=== PATIENT | male | born 1945 | race Caucasian/White ===

== ENCOUNTER → 2020-04-20 08:04 | Outpatient (BNVA) | payer MEDICARE, SELFPAY | PROVIDERS: Family Provider Nurse Practitioner; PCP Nurse Practitioner; Visit Provider Nurse Practitioner | DX: E78.2 Mixed hyperlipidemia (principal) | CPT/HCPCS: 80053; 80061 ==

== ENCOUNTER → 2020-10-05 08:07 | Outpatient (BNVA) | payer MEDICARE, SELFPAY | PROVIDERS: Family Provider Nurse Practitioner; PCP Nurse Practitioner; Visit Provider Nurse Practitioner | DX: Z79.899 Other long term (current) drug therapy (principal) | CPT/HCPCS: 84450; 84460 ==

== ENCOUNTER → 2020-10-07 08:04 | Outpatient (BNVA) | payer MEDICARE, SELFPAY | PROVIDERS: Family Provider Nurse Practitioner; PCP Nurse Practitioner; Visit Provider Nurse Practitioner | DX: E78.2 Mixed hyperlipidemia (principal) | CPT/HCPCS: 80053; 80061 ==

== ENCOUNTER 2020-11-20 14:11 | Emergency (ER) | payer MEDICARE, SELFPAY ==
[2020-11-20 14:17] VITALS: BP 115/64; PULSE 51; RESP 18; TEMP 36.7; O2SAT 99; BMI 24.3
--- NOTE | 2020-11-20 14:24 | W.ED.EYEPROB ---
Documented by User: JANE Casarez 11/20/20 15:12 HPI - Eye Problem General: Chief complaint: Eye Problems Stated complaint: L EYE INJURY Time Seen by Provider: 11/20/20 14:12 Source: patient Mode of arrival: ambulatory Limitations: no limitations History of Present Illness: HPI Narrative: Patient is a 75-year-old male who presents to ED today with a complaint of redness to his left eye. He states he only noticed the eye when he looked in the mirror. He denies any recent trauma. He is not complaining of pain. He is not complaining of any visual changes or visual loss. He has a mild foreign body sensation to the lateral aspect of his eye. 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 Mixed hyperlipidemia Tobacco abuse, in remission Vitamin D deficiency Surgical History H/O sinus surgery History of colonoscopy 2012 History of hernia repair History of tonsillectomy History of vasectomy Hx of coronary angioplasty July 30, 2017 Family History Mother Cancer Breast, Throat, Kidney Brother Cancer Lung Father Alzheimer disease Denies family history of Family history of premature coronary artery disease Social History Smoking and tobacco status: former smoker Second hand smoke exposure: No Smoking risk assessment/counseling performed?: No Alcohol intake: never Desire information about alcohol rehabilitation?: No Counseling given: No Desire information about substance/drug rehabilitation?: No Counseling given: No Caregiver/support person: No Lives independently: Yes Household members: spouse Housing: House Marital status: Current occupational status: retired History of recent travel: No Current gender identity: Male Special elian needs: No Physical Exam Const: COMMON NORMALS: no acute distress, average body habitus, patient oriented x3, no limitations, healthy appearing, alert and well nourished GENERAL APPEARANCE: cooperative ORIENTATION/CONSCIOUSNESS: Yes awake, Yes oriented to person, Yes oriented to place and Yes oriented to time HENMT: COMMON NORMALS: normocephalic, atraumatic, hearing grossly normal bilaterally, external ears normal, EAC's normal, TM's normal bilaterally, Normal external nose present, Normal nasal mucous membranes and turbinates present, moist oral mucous membranes and oropharynx normal HEAD & SCALP: normal to inspection, normocephalic and atraumatic FACE & SINUS: normal facial exam, sinuses nontender and other (mild ecchymosis noted to interior orbital region) NOSE: Normal external nose present and Normal nasal mucous membranes and turbinates present EXTERNAL EAR: Yes external ears normal EXTERNAL AUDITORY CANAL: EAC's normal TYMPANIC MEMBRANE: TM's normal bilaterally Eye: COMMON NORMALS: Equal, round and reactive pupils present, EOMs intact bilaterally and normal visual weston by confrontation GENERAL EYE: normal light reflex VISUAL ACUITY: Yes acuity normal VISUAL [place]ST[place]: No peripheral vision loss ALIGNMENT: Yes alignment normal EYELID: eyelids normal CONJUNCTIVA: Yes conjunctival abnormal (L subconjunctival hemorrhage) CORNEA: Yes fluorescein used (very small abrasion to medial aspect ) PUPIL: Yes Equal, round and reactive pupils present and Yes Pupil accommodation reflex normal EOM: No Nystagmus present DIRECT OPHTHALMOSCOPY: Yes normal light reflex Neck/C-Spine: COMMON NORMALS: full ROM, no lymphadenopathy and no meningeal signs Neuro: COMMON NORMALS: patient oriented x3 SENSORIUM/ORIENTATION: Yes alert, Yes oriented to person, Yes oriented to place and Yes oriented to time MENINGEAL SIGNS: Yes no meningeal signs Course Vital Signs: Vital signs: Vital Signs Temperature 98.0 F 11/20/20 14:17 Pulse Rate 51 L 11/20/20 14:17 Respiratory Rate 18 11/20/20 14:17 Blood Pressure 119/66 11/20/20 14:46 Pulse Oximetry 99 11/20/20 14:17 MDM - Eye Problem MDM Narrative: Medical decision making narrative: Dr. Corona has also seen and evaluated patient and agrees with current plan. He has a small medial corneal abrasion with a fairly large subconjunctival hemorrhage. There is no evidence of globe injury. There is no blood or fluid to his anterior chamber. Patient is not complaining of pain or visual changes. He does not wish to follow-up with Dr. Moore. I have contacted [facility] who stated they would gladly see patient. Recommend they contact their office on Monday for appointment date and time. Strict return to ED precautions given regarding visual changes or pain in his eye. Will place patient on antibiotic drops. Discharge Plan Discharge Patient Disposition: Home Clinical Impression: Subconjunctival hemorrhage of left eye Abrasion of left cornea Qualifiers: Encounter type: initial encounter Qualified Code(s): S05.02XA - Injury of conjunctiva and corneal abrasion without foreign body, left eye, initial encounter Condition: Stable Prescriptions: New Polytrim 10,000 unit- 1 mg/mL drops 1 drp ophthalmic (eye) QID 7 Days Qty: 10 RF: 0 No Action aspirin 81 mg tablet,delayed release (DR/EC) 81 mg PO DAILY@0800 RF: 0 Vitamin D3 1 tab PO DAILY@0800 RF: 0 atorvastatin 40 mg tablet 40 mg PO DAILY@0800 RF: 0 famotidine 40 mg tablet 40 mg PO BID@799,1999 RF: 0 clopidogrel 75 mg tablet 75 mg PO DAILY@0800 RF: 0 terbinafine HCl 250 mg tablet 250 mg PO DAILY@0800 RF: 0 temazepam 30 mg capsule 30 mg PO BEDTIME@1999 RF: 0 fluoxetine 20 mg capsule 20 mg PO DAILY@0800 RF: 0 lisinopril 2.5 mg tablet 2.5 mg PO DAILY@00 RF: 0 finasteride 5 mg tablet 5 mg PO BEDTIME@1999 RF: 0 metoprolol tartrate 25 mg tablet 12.5 mg PO BID@799,1999 RF: 0 Discharge Orders: Discharge ED (Routine); Ordered 11/20/20 Ordered By: Codi Zee Referrals: Lloyd Regalado, [facility] [Primary Care Provider] - Patient Instructions: Opioid Safety Activity Restrictions/Additional Instructions: [facility] is committed to fighting the nationwide opiate epidemic. We are providing ALL patients with information regarding opiate safety. If you received opiate pain medication during your stay or if you received a prescription for opiate pain medication-please review this handout. If not, you may disregard. Thank you. As discussed have spoken to [facility] in [facility]. If eye does not seem to be improving by Monday you need to contact their office at [phone] or [phone] to schedule an appointment. As discussed at anytime if you feel like the eye is worsening, you begin having visual changes/visual loss, or pain you need to return immediately to the emergency department. 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 Mixed hyperlipidemia Tobacco abuse, in remission Vitamin D deficiency Surgical History H/O sinus surgery History of colonoscopy 2012 History of hernia repair History of tonsillectomy History of vasectomy Hx of coronary angioplasty July 30, 2017 Family History Mother Cancer Breast, Throat, Kidney Brother Cancer Lung Father Alzheimer disease Denies family history of Family history of premature coronary artery disease Social History Smoking and tobacco status: former smoker Second hand smoke exposure: No Smoking risk assessment/counseling performed?: No Alcohol intake: never Desire information about alcohol rehabilitation?: No Counseling given: No Desire information about substance/drug rehabilitation?: No Counseling given: No Caregiver/support person: No Lives independently: Yes Household members: spouse Housing: House Marital status: Current occupational status: retired History of recent travel: No Current gender identity: Male Special elian needs: No Course Vital Signs: Vital signs: Vital Signs Temperature 98.0 F 11/20/20 14:17 Pulse Rate 51 L 11/20/20 14:17 Respiratory Rate 18 11/20/20 14:17 Blood Pressure 119/66 11/20/20 14:46 Pulse Oximetry 99 11/20/20 14:17 MDM - Eye Problem MDM Narrative: Medical decision making narrative: I evaluated this patient with JANE Casarez. Kindly evaluate her note for a complete history and evaluation. I examined this patient and i agree with her findings. This male with significant subconjunctival hemorrhage without any trauma. Evaluation also shows a small corneal abrasion. He will be evaluated by the eye providers in [place] per patient's preference. He is discharged home with a prescription for antibiotic ointment and will follow up with eye providers as scheduled. Discharge Plan Discharge Patient Disposition: Home Clinical Impression: Subconjunctival hemorrhage of left eye Abrasion of left cornea Qualifiers: Encounter type: initial encounter Qualified Code(s): S05.02XA - Injury of conjunctiva and corneal abrasion without foreign body, left eye, initial encounter Condition: Stable Prescriptions: New Polytrim 10,000 unit- 1 mg/mL drops 1 drp ophthalmic (eye) QID 7 Days Qty: 10 RF: 0 No Action aspirin 81 mg tablet,delayed release (DR/EC) 81 mg PO DAILY@0800 RF: 0 Vitamin D3 1 tab PO DAILY@0800 RF: 0 atorvastatin 40 mg tablet 40 mg PO DAILY@0800 RF: 0 famotidine 40 mg tablet 40 mg PO BID@799,1999 RF: 0 clopidogrel 75 mg tablet 75 mg PO DAILY@0800 RF: 0 terbinafine HCl 250 mg tablet 250 mg PO DAILY@0800 RF: 0 temazepam 30 mg capsule 30 mg PO BEDTIME@1999 RF: 0 fluoxetine 20 mg capsule 20 mg PO DAILY@0800 RF: 0 lisinopril 2.5 mg tablet 2.5 mg PO DAILY@0800 RF: 0 finasteride 5 mg tablet 5 mg PO BEDTIME@1999 RF: 0 metoprolol tartrate 25 mg tablet 12.5 mg PO BID@799,1999 RF: 0 Discharge Orders: Discharge ED (Routine); Ordered 11/20/20 Ordered By: Codi Zee Referrals: Lloyd Regalado, [facility] [Primary Care Provider] - Patient Instructions: Opioid Safety Activity Restrictions/Additional Instructions: [facility]. We are providing ALL patients with information regarding opiate safety. If you received opiate pain medication during your stay or if you received a prescription for opiate pain medication-please review this handout. If not, you may disregard. Thank you. As discussed [facility]. If eye does not seem to be improving by Monday you need to contact their office at [phone] or [phone] to schedule an appointment. As discussed at anytime if you feel like the eye is worsening, you begin having visual changes/visual loss, or pain you need to return immediately to the emergency department. Coding Level of Care Code ED Fork Repairer for Radhag Fwd Exam Expanded Problem Focused
[2020-11-20 14:46] VITALS: BP 119/66
--- NOTE | 2020-11-20 14:48 | PC.NURSE ---
visual acuity uncorrected both eyes 20/25 right 20/25 left 20/50 lees lamp eye exam at bedside with brenden
[2020-11-20] MEDS: tetracaine 0.5% Op Soln 4 mL Btl 1 DROP EYE-LEFT (14:49)
[2020-11-20] MEDS: fluorescein 1 mg Strip EYE-LEFT (14:49)
[2020-11-20] MEDS: eye irrigation 30 mL Btl EYE-LEFT (14:50)
== END 2020-11-20 15:07 | disposition home or self-care (01) ==
PROVIDERS: Emergency Provider Physician Assistant; PCP Nurse Practitioner
DX: H11.32 Conjunctival hemorrhage, left eye (principal); S05.02XA Injury of conjunctiva and corneal abrasion without foreign body, left eye, initial encounter; Z79.82 Long term (current) use of aspirin; Z79.02 Long term (current) use of antithrombotics/antiplatelets; Z87.891 Personal history of nicotine dependence; Z98.61 Coronary angioplasty status; I25.10 Atherosclerotic heart disease of native coronary artery without angina pectoris; J44.9 Chronic obstructive pulmonary disease, unspecified; E78.2 Mixed hyperlipidemia; X58.XXXA Exposure to other specified factors, initial encounter
CPT/HCPCS: 99282

== ENCOUNTER → 2021-03-24 08:04 | Outpatient (BNVA) | payer MEDICARE, SELFPAY | PROVIDERS: PCP Nurse Practitioner; Visit Provider Nurse Practitioner | DX: E78.2 Mixed hyperlipidemia (principal); J43.9 Emphysema, unspecified | CPT/HCPCS: 80053; 80061 ==

== ENCOUNTER → 2021-09-20 08:21 | Outpatient (BNVA) | payer MEDICARE, SELFPAY | PROVIDERS: PCP Family Medicine; Visit Provider Nurse Practitioner | DX: E78.2 Mixed hyperlipidemia (principal); J43.9 Emphysema, unspecified | CPT/HCPCS: 80053; 80061 ==

== ENCOUNTER → 2022-03-14 07:58 | Outpatient (BNVA) | payer MEDICARE, SELFPAY | PROVIDERS: PCP Family Medicine; Visit Provider Nurse Practitioner | DX: J43.9 Emphysema, unspecified (principal); E78.2 Mixed hyperlipidemia; E55.9 Vitamin D deficiency, unspecified | CPT/HCPCS: 80053; 80061 ==

== ENCOUNTER → 2022-06-10 09:00 | Outpatient (BNVA) | payer MEDICARE, SELFPAY | PROVIDERS: PCP Family Medicine; Visit Provider Internal Medicine | DX: I25.2 Old myocardial infarction (principal); E78.2 Mixed hyperlipidemia; I65.29 Occlusion and stenosis of unspecified carotid artery; Z87.891 Personal history of nicotine dependence | CPT/HCPCS: 99213; 99214 ==

== ENCOUNTER → 2022-09-05 08:02 | Outpatient (BNVA) | payer MEDICARE, SELFPAY | PROVIDERS: PCP Family Medicine; Visit Provider Nurse Practitioner | DX: I25.10 Atherosclerotic heart disease of native coronary artery without angina pectoris (principal); E78.2 Mixed hyperlipidemia; J43.9 Emphysema, unspecified | CPT/HCPCS: 80053; 80061 ==

== ENCOUNTER → 2023-03-06 08:11 | Outpatient (BNVA) | payer MEDICARE, SELFPAY | PROVIDERS: PCP Nurse Practitioner; Visit Provider Nurse Practitioner | DX: I25.10 Atherosclerotic heart disease of native coronary artery without angina pectoris (principal); J43.9 Emphysema, unspecified; E78.2 Mixed hyperlipidemia | CPT/HCPCS: 80053; 80061 ==

== ENCOUNTER → 2023-03-10 08:27 | Outpatient (BNVA) | payer MEDICARE, SELFPAY | PROVIDERS: PCP Family Medicine; Visit Provider Internal Medicine | DX: I25.2 Old myocardial infarction (principal); E78.2 Mixed hyperlipidemia; I65.29 Occlusion and stenosis of unspecified carotid artery; Z87.891 Personal history of nicotine dependence | CPT/HCPCS: 99214 ==

== ENCOUNTER → 2023-08-21 08:01 | Outpatient (BNVA) | payer MEDICARE, SELFPAY | PROVIDERS: PCP Family Medicine; Visit Provider Nurse Practitioner | DX: E55.9 Vitamin D deficiency, unspecified (principal); E78.2 Mixed hyperlipidemia; Z12.5 Encounter for screening for malignant neoplasm of prostate; J43.9 Emphysema, unspecified | CPT/HCPCS: 80053; 80061; 82306; 84443; G0103 ==

== ENCOUNTER → 2023-12-08 08:57 | Outpatient (BNVA) | payer MEDICARE, SELFPAY | PROVIDERS: PCP Nurse Practitioner; Visit Provider Nurse Practitioner Family | DX: I25.10 Atherosclerotic heart disease of native coronary artery without angina pectoris (principal); Z87.891 Personal history of nicotine dependence | CPT/HCPCS: 99214 ==

== ENCOUNTER → 2024-02-05 07:54 | Outpatient (BNVA) | payer MEDICARE, SELFPAY | PROVIDERS: PCP Nurse Practitioner; Visit Provider Nurse Practitioner | DX: E55.9 Vitamin D deficiency, unspecified (principal); E78.2 Mixed hyperlipidemia; I25.10 Atherosclerotic heart disease of native coronary artery without angina pectoris | CPT/HCPCS: 80053; 80061; 82306; 84443 ==

== ENCOUNTER → 2024-07-22 08:33 | Outpatient (BNVA) | payer MEDICARE, SELFPAY | PROVIDERS: PCP Nurse Practitioner; Visit Provider Nurse Practitioner | DX: E55.9 Vitamin D deficiency, unspecified (principal); F41.9 Anxiety disorder, unspecified; F32.9 Major depressive disorder, single episode, unspecified; I25.10 Atherosclerotic heart disease of native coronary artery without angina pectoris | CPT/HCPCS: 80053; 80061; 82306; 85025 ==

== ENCOUNTER → 2024-12-05 13:26 | Outpatient (BNVA) | payer MEDICARE, SELFPAY | PROVIDERS: PCP Nurse Practitioner; Visit Provider Internal Medicine | DX: I65.29 Occlusion and stenosis of unspecified carotid artery (principal); I25.2 Old myocardial infarction; E78.2 Mixed hyperlipidemia; Z87.891 Personal history of nicotine dependence | CPT/HCPCS: 99214 ==

== ENCOUNTER → 2024-12-16 07:58 | Outpatient (BNVA) | payer MEDICARE, SELFPAY | PROVIDERS: PCP Nurse Practitioner; Visit Provider Nurse Practitioner | DX: E78.2 Mixed hyperlipidemia (principal); I25.10 Atherosclerotic heart disease of native coronary artery without angina pectoris; E55.9 Vitamin D deficiency, unspecified | CPT/HCPCS: 80053; 80061; 82306 ==

== ENCOUNTER → 2025-06-09 08:30 | Outpatient (BNVA) | payer MEDICARE, SELFPAY | PROVIDERS: PCP Nurse Practitioner; Visit Provider Nurse Practitioner | DX: Z12.5 Encounter for screening for malignant neoplasm of prostate (principal); E78.2 Mixed hyperlipidemia | CPT/HCPCS: 80053; 80061; G0103 ==